=== PATIENT | male | born 1965 | race Caucasian/White ===

== ENCOUNTER 2018-09-08 10:28 | Emergency (ER) | payer MEDICAID ==
[~2018-09-08] VITALS: Ht 172.7 cm; Wt 84.7 kg
[2018-09-08 10:31] VITALS: Ht 172.7 cm; Wt 84.7 kg
[2018-09-08] MEDS ORDERED: KETOROLAC 60 MG INJ IM STA (11:04)
--- NOTE | 2018-09-08 11:48 | ERD ---
ER Documentation Chief Complaint Chief Complaint rt foot pain x 1 week HPI This is a 52-year-old male with a nonsignificant past medical history presents ED with complaints of right heel pain x1 week. Patient denies any fall or injury to account for pain. Patient states that he walks a lot at work. Patient denies any fever, chills, tingling, numbness, lack sensation. No known drug allergies. ROS All systems reviewed and are negative except as per history of present illness. Allergies Allergies: Coded Allergies: No Known Allergy (Unverified , 09/08/18) PMhx/Soc History of Surgery: No Anesthesia Reaction: No Hx Neurological Disorder: No Hx Respiratory Disorders: No Hx Cardiac Disorders: No Hx Psychiatric Problems: No Hx Miscellaneous Medical Probl: No Hx Alcohol Use: Yes Hx Substance Use: No Hx Tobacco Use: No Smoking Status: Never smoker FmHx Family History: No diabetes Physical Exam Vitals Vital Signs Date Temp Pulse Resp B/P (MAP) Pulse Ox O2 O2 Flow FiO2 Time Delivery Rate 09/08/18 97.6 82 18 142/89 97 10:31 (106) Physical Exam Const: No acute distress Head: Atraumatic Eyes: Normal Conjunctiva ENT: Normal External Ears, Nose and Mouth. Neck: Full range of motion. No meningismus. Resp: No respiratory distress Ext: No cyanosis, or edema Lower Extremity -right Skin: No laceration Compartments: Soft Motor: Full active range of motion hip/knee/ankle/foot Sensation: Intact to light touch FDWS/MF/LF/P surfaces. Bones: Nontender pelvis/knee/proximal tibia/ malleoli/foot Joints: No effusion or laxity Pulses/Perfusion: 2+ DP, Capillary refill < 2 seconds Neur: Awake and alert Psych: Normal Mood and Affect Results 24 hrs Current Medications Medications Dose Sig/Sotero Start Time Status Last (Trade) Ordered Route PRN Stop Time Admin Dose Reason Admin Ketorolac 60 mg ONCE STAT 09/08/18 DC 09/08/18 Tromethamine IM 11:04 11:21 (Toradol) 09/08/18 11:05 Procedures/MDM EKG, MONITORS, & DIAGNOSTIC IMAGING: [place] [id number] Radiology Main Line: [phone] DIAGNOSTIC IMAGING REPORT Patient: MIRIAN GARCIA : 1965 Age: 52 Sex: M MR #: [id number] DOS: 09/08/18 1104 Ordering MD: RANDEE CLAIRE PA-C Location: [facility] Room/Bed: PROCEDURE: XR Right Foot. CLINICAL INDICATION: Right foot pain. TECHNIQUE: 3 views. Frontal, lateral, and oblique. COMPARISON: None. FINDINGS: There is a hallux valgus deformity. The soft tissues are normal. Articular surfaces are intact. There is no lytic or blastic lesion. There is no radiopaque foreign body. IMPRESSION: There is a hallux valgus deformity. No displaced osseous fracture. RPTAT: QQ Physician Svetlana Date Time Electronically viewed and signed by Physician Svetlana on 09/08/2018 11:49 RD/ CC: RANDEE CLAIRE PA-C [id number] ER COURSE: The patient was given IM Toradol The medication was well tolerated and the patient reports improvement in symptoms. The patient was stable throughout ED course. I kept the patient and/or family informed of laboratory and diagnostic imaging results throughout the emergency room course. The patient was promptly evaluated and a treatment plan was devised based on H&P and other data. This plan was discussed with the patient who agreed and had no further questions or concerns prior to discharge. MEDICAL DECISION MAKIN-year-old male presents ED with complaints of right heel pain x1 week. Physical examination is somewhat unremarkable but with where patient's pain is at this is likely plantar fasciitis. Patient was advised to use [id number] r ibuprofen and do stretching in the morning with a tennis ball to help break up the fascia. History and physical examination other data not consistent with emergent processes including but not limited to fracture, dislocation, tendon rupture, ischemia, neurovascular injury, compartment syndrome, septic joint, avascular necrosis, osteomyelitis, necrotizing fasciitis, septic joint, septic arthritis, or other emergent conditions. Patient's vitals are stable and can be managed outpatient with close follow-up. Advised patient to follow-up with primary care in the next 48 hours. Return to ED with any worsening symptoms. DISPOSITION PLAN: We discussed follow up with the patient's primary care doctor within 24 to 48 hours. Patient counseled regarding my diagnostic impression and care plan. Prior to discharge all questions answered. Pt agrees with treatment plan and understands strict return precautions. Precautionary instructions provided including instructions to return to the ER if not improving or for any worsening or changing symptoms or concerns. SPECIALIST FOLLOW UP RECOMMENDED: None Patient has been advised to follow up with primary care in 1-2 days. Disclaimer: Inadvertent spelling and grammatical errors are likely due to EHR/dictation software use and do not reflect on the overall quality of patient care. Also, please note that the electronic time recorded on this note does not necessarily reflect the actual time of the patient encounter. Departure Diagnosis: Primary Impression: Pain of right heel Condition: Stable Patient Instructions: Plantar Fasciitis, Treating Plantar Fasciitis [facility] Additional Instructions: Paciente aconseja volver a Departamento de urgencias inmediatamente para sntomas nuevos o que empeoran . Paciente aconseja posteriores con el PCP en 1-2 calvillo . Paciente verbaliza la comprehensin y est de acuerdo con el tratamiento y el curso de accin. Si el paciente no tiene ninguna de atencin primaria pueden seguir con [facility] [address] [place] [address] o [facility] + [address] [address] RANDEE CLAIRE PA-C Sep 08, 2018 11:48
[2018-09-08] MEDS ORDERED: IBUP-1542 PO (12:07)
[2018-09-08 12:15] VITALS: BP 129/74; PULSE 77; RESP 18
== END 2018-09-08 12:19 | disposition home or self-care (01) ==
LOC: FTE 10:28
DX: M79.671 Pain in right foot (principal)
CPT/HCPCS: 73630; 96372; J1885; Z7502